=== PATIENT | female | born 1985 | race Caucasian/White ===

== ENCOUNTER 2016-11-04 17:54 | Emergency (ER) | payer OTHER ==
[~2016-11-04] VITALS: Ht 162.6 cm; Wt 99.2 kg
[~2016-11-04 17:54] MED LIST: ENDOCET 5-3251 EACH PO; FERROUS SULFAT325 MG PO; IBUPROFEN800 MG PO; Motrin PO; NOHOMEMEDS; PRENATAL TABLE1 EAC3 PO; PROGESTERONE50 MG/ML IM; Percocet 5/325,Endoc PO; ZOFRAN4 MG PO
[2016-11-04 18:38] LABS: HEMATOCRIT 41.5 % (36.0-46.0); MCH 28.8 PG (29.0-34.0); MCV 89.8 FL (83-99); MEAN PLAT.VOLUME 11.5 uM^3 (9.5-12.4); PLATELET COUNT 286 K/uL (156-360); RBC DIS.WIDTH-CV 13.4 % (11.8-14.6); RBC DIS.WIDTH-SD 44.2 % (39-53); RED BLOOD COUNT 4.62 M/uL (3.80-5.20); WHITE BLOOD COUNT 10.8 K/uL (4.1-10.2)
[2016-11-04 18:54] LABS: CHLORIDE 104 mEq/L (99-109); POTASSIUM 4.4 mEq/L (3.7-5.4); SODIUM 137 mEq/L (136-147)
[2016-11-04 18:55] LABS: GLUCOSE 106 mg/dL (70-99)
[2016-11-04 18:57] LABS: ANION GAP 9 MEQ/L (2-14)
[2016-11-04 18:59] LABS: GFR ESTIMATE (CALCULATED) > 59 mL/min/
[2016-11-04 19:00] LABS: UREA NITROGEN (BUN) 18 mg/dL (9-23)
[2016-11-04 19:08] LABS: QUANTITATIVE HCG < 4.0 MIU/ML
[2016-11-04 19:27] LABS: ADD MIUA? NO; BILIRUBIN NEGATIVE; BLOOD NEGATIVE; COLOR YELLOW ((YELLOW)); GLUCOSE (STRIP) NEGATIVE; KETONES NEGATIVE; LEUKOCYTES NEGATIVE; NITRITE NEGATIVE; PROTEIN (STRIP) NEGATIVE; SPECIFIC GRAVITY 1.027 (1.000-1.030); UCUL ADDED? NO; UROBILINOGEN 0.2 MG/DL (0.2-1.0)
[2016-11-04] MEDS ORDERED: NAPROSYN500 MG PO (20:38)
[2016-11-04] MEDS ORDERED: BENTYL20 MG PO (20:38)
[2016-11-04 20:52] VITALS: BP 125/72
== END 2016-11-04 20:53 | disposition home or self-care (01) ==
LOC: EME 17:54
DX: K52.9 Noninfective gastroenteritis and colitis, unspecified (principal)
CPT/HCPCS: 74176; 80048; 81003; 84702; 85027; 99281; 99284

== ENCOUNTER 2017-04-18 10:51 | Emergency (ER) | payer OTHER ==
[~2017-04-18] VITALS: Ht 160 cm; Wt 93.4 kg
[~2017-04-18 10:51] MED LIST changes: +BENTYL20 MG PO; +NAPROSYN500 MG PO
[2017-04-18] MEDS ORDERED: ATIVAN1 MG PO (13:14)
[2017-04-18 13:36] VITALS: BP 128/77
== END 2017-04-18 13:38 | disposition home or self-care (01) ==
LOC: EME 10:51
DX: F41.0 Panic disorder [episodic paroxysmal anxiety] (principal)
CPT/HCPCS: 93005; 99281; 99283; J2060